=== PATIENT | female | born 1985 | race Caucasian/White ===

== ENCOUNTER 2016-06-22 10:14 | Outpatient (CLI) | payer MEDICAID ==
[~2016-06-22] VITALS: Ht 152.4 cm; Wt 100.9 kg
[2016-06-22] MEDS ORDERED: PRENAT PO (10:31)
[2016-06-22 10:33] VITALS: Ht 152.4 cm; Wt 100.9 kg
[2016-06-22 10:34] VITALS: BP 116/68; PULSE 89; RESP 18
--- NOTE | 2016-06-22 11:53 | RADRPT ---
PROCEDURE: US OB. CLINICAL INDICATION: Size and dates , decreased movements TECHNIQUE: Multiple sonographic images of the pelvis and gravid uterus were obtained. The images were reviewed on a PACS workstation. COMPARISON: No prior studies are available for comparison. FINDINGS: There is a single viable intrauterine gestation. Cardiac activity is present with 146 beats per min [place]. There is a breech presentation. The placenta is anterior fundal. There is no evidence for an abruption or placenta previa. Measurements were made in order to determine age. The results are as follows: BPD =7.4 cm HC =27.1 cm AC =26.4 cm FL =5.4 cm Estimated gestational age of approximately 29 weeks and 4 days based on ultrasound measurements. Clinical age: 30 weeks and 3 days. The estimated date of delivery is 09/03/16, based on ultrasound measurements. The EFW = 1448 g, 17.8%, based on LMP age. RPTAT: AA IMPRESSION: Single viable intrauterine gestation of approximately 29 weeks and 4 days based on ultrasound measu rements. .Ronan Vizcarra MD, MD Date Time Electronically viewed and signed by .Ronan Vizcarra MD, on 06/22/2016 11:53 .S/
--- NOTE | 2016-06-22 11:55 | RADRPT ---
PROCEDURE: US OB biophysical profile. CLINICAL INDICATION: Decreased movement TECHNIQUE: Multiple sonographic images of the pelvis were obtained. The images were reviewed on a PACS workstation. COMPARISON: Obstetrical ultrasound from the same date FINDINGS: There is a single viable intrauterine gestation. Cardiac activity is present with 146 beats per min [place]. There is a breech presentation. The placenta is anterior and fundal. There is no evidence of placental abruption. There is an elevated amount of amniotic fluid with an CHRISTIAN = 22.7 cm. Biophysical profile: movement 2/2 tone 2/2. breathing 2/2 CHRISTIAN 2/2 Total 12/22 RPTAT: AA . IMPRESSION: Normal biophysical profile. Elevated CHRISTIAN of 22.7 cm. Physician Cindy Date Time Electronically viewed and signed by Physician Cindy on 06/22/2016 11:55 /
--- NOTE | 2016-06-22 12:32 | PN ---
DATE: 06/22/2016 The patient is a 30-year-old complaining of decreased movement. No leakage or vaginal b leeding. Vital signs stable. NST, ultrasound, BBP all within normal limits. The patient was disch arged home. Followup with [facility] within 1 to 2 days. ER precautions given. The patient stable on discharge. Dictated By: JESÚS YODER MD /NTS Conf#: [id number] DID#: [id number]
== END 2016-06-22 11:45 | disposition home or self-care (01) ==
LOC: OBT 10:14 → L-D 10:15 → OBT 11:45
PROVIDERS: ATTEND Obstetrics & Gynecology
DX: O36.8130 Decreased fetal movements, third trimester, not applicable or unspecified (principal); O26.843 Uterine size-date discrepancy, third trimester; Z3A.30 30 weeks gestation of pregnancy
CPT/HCPCS: 76815; 76818; Z7500; G0463

== ENCOUNTER 2016-08-11 11:18 | Outpatient (CLI) | payer MEDICAID ==
[~2016-08-11] VITALS: Ht 152.4 cm; Wt 108.0 kg
[~2016-08-11 11:18] MED LIST: PRENAT PO
[2016-08-11 11:33] VITALS: Ht 152.4 cm; Wt 108.0 kg
[2016-08-11 11:34] VITALS: BP 107/70; PULSE 110; RESP 19
--- NOTE | 2016-08-11 11:59 | RADRPT ---
PROCEDURE: US OB. CLINICAL INDICATION: Size and dates TECHNIQUE: Multiple sonographic images of the pelvis and gravid uterus were obtained. The images were reviewed on a PACS workstation. COMPARISON: 06/22/2016 FINDINGS: The study is limited due to patient body habitus. There is a single viable intrauterine gestation. Cardiac activity is present with 163 beats per min [place]. There is a vertex presentation. The placenta is left lateral. There is no evidence for an abruption or placenta previa. Measurements were made in order to determine age. The results are as follows: BPD =9.5 cm HC =33.3 cm AC =37.1 cm FL =6.9 cm Estimated gestational age of approximately 38 weeks and 2 days based on ultrasound measurements. Clinical age: 36 weeks and 4 days. The estimated date of delivery is 08/23/16, based on ultrasound measurements. The EFW = 3737 g, >97%, based on LMP age. RPTAT: AA IMPRESSION: Single viable intrauterine gestation of approximately 38 weeks and 2 days based on ultrasound measu rements. Larger than clinical age by approximately 2 weeks. .Ronan Vizcarra MD, MD Date Time Electronically viewed and signed by .Ronan Vizcarra MD, on 08/11/2016 11:59 .S/
--- NOTE | 2016-08-11 12:02 | RADRPT ---
PROCEDURE: US OB biophysical profile. CLINICAL INDICATION: decreased movements, size and dates TECHNIQUE: Multiple sonographic images of the pelvis were obtained. The images were reviewed on a PACS workstation. COMPARISON: No prior studies are available for comparison. FINDINGS: There is a single viable intrauterine gestation. Cardiac activity is present with 161 beats per min [place]. There is a vertex presentation. The placenta is left lateral. There is no evidence of placental abruption. There is a slightly increased amount of amniotic fluid with an CHRISTIAN = 22.3 cm. Biophysical profile: movement 2/2 tone 2/2. breathing 2/2 CHRISTIAN 2/2 Total 12/22 RPTAT: AA . IMPRESSION: Normal biophysical profile. Mild polyhydramnios. . .Ronan Vizcarra MD, Date Time Electronically viewed and signed by .Ronan Vizcarra MD, MD on 08/11/2016 12:02 .S/
--- NOTE | 2016-08-11 12:51 | TRIAGE ---
OB Triage Datetime Report Generated by CPN: 08/11/2016 12:51 Datetime: 08/11/2016 12:40 Maternal Assessment Level of Consciousness: Fully Conscious DTR's/Clonus: DTRs 1+ Headache: Denies Blurred Vision: No Respiratory Effort: Unlabored Breath Sounds, Left: Clear and Equal Breath Sounds, Right: Clear and Equal RUQ Epigastric Pain: Denies Facial Edema: None Labor Evaluation Frequency: X2 Monitor Mode: External Duration (sec)2399: 40-50 Quality: Mild Pattern: Normal: <= 5 Contractions in 10 Minutes Resting Tone Blessing: Relaxed Heart Rate FHR Baseline Rate: 145 Monitor Mode: External US Variability: Moderate 6-25 bpm Accelerations: 15X15 Decelerations: None Category: Category I Pain Assessment Pain Scale: 0 Pain Presence: None/Denies Pain Type: N/A Pain Goal: 3 Vaginal Exam Membrane Status: Intact Datetime: 08/11/2016 11:34 Maternal Assessment Level of Consciousness: Fully Conscious DTR's/Clonus: DTRs 1+ Headache: Denies Blurred Vision: No Respiratory Effort: Unlabored Breath Sounds, Left: Clear and Equal Breath Sounds, Right: Clear and Equal Nausea/Vomiting: Denies RUQ Epigastric Pain: Denies Facial Edema: None Labor Evaluation Frequency: X1 Monitor Mode: External Duration (sec)2399: 50 Quality: Mild Pattern: Normal: <= 5 Contractions in 10 Minutes Resting Tone Blessing: Relaxed Heart Rate FHR Baseline Rate: 145 Monitor Mode: External US Variability: Moderate 6-25 bpm Accelerations: 15X15 Decelerations: None Category: Category I Pain Assessment Pain Scale: 0 Pain Presence: None/Denies Pain Type: N/A Vaginal Exam Membrane Status: Intact Datetime: 08/11/2016 11:32 Assessment Type: Triage Maternal Assessment Level of Consciousness: Fully Conscious DTR's/Clonus: DTRs 2+; No Clonus Headache: Denies Blurred Vision: No Respiratory Effort: Unlabored; Regular Rhythm; Equal Expansion Breath Sounds, Left: Clear and Equal Breath Sounds, Right: Clear and Equal Nausea/Vomiting: Denies RUQ Epigastric Pain: Denies Lower Extremities Edema: None Degree: None Upper Extremities Edema: None Degree: None Facial Edema: None Fall Risk Assessment History of Falling: (0) No Secondary Diagnosis: (0) No Ambulatory Aid: (0) Bedrest/Nurse Assist IV Therapy: (0) No Gait: (0) Normal/Bedrest/Immobile Mental Status: (0) Oriented to Own Ability Fall Score: 0 Fall Risk Score Definition: No Risk: No action required Datetime: 08/11/2016 11:05 Time of Arrival: 08/11/2016 11:05 EGA: 35.4 Arrived By: Ambulatory Arrived From: Home Chief Complaint: PT CAME IN FROM [facility] FOR NST BPP AND EFW Movement: Present Contractions: Denies/Absent Rupture of Membranes: Denies Vaginal Bleeding: None Vaginal Discharge: Denies Recent Sexual Intercouse: Denies Abdominal Trauma: Not Applicable Patient Complaints: Other Additional Patient Complaints: NONE Time Provider Notified: 08/11/2016 11:25 Provider Notified: [facility] Initial Plan: BPP NST AND EFW Datetime: 06/22/2016 11:24 Labor Evaluation Frequency: 0 Pattern: Normal: <= 5 Contractions in 10 Minutes Resting Tone Blessing: Relaxed Heart Rate FHR Baseline Rate: 145 Monitor Mode: External US FHR Baseline Changes: No Baseline Change Variability: Moderate 6-25 bpm Accelerations: 15X15 Decelerations: None Category: Category I Datetime: 06/22/2016 10:45 Assessment Type: Admission Assessment Maternal Assessment Level of Consciousness: Fully Conscious DTR's/Clonus: DTRs 2+; No Clonus Headache: Denies Blurred Vision: No Respiratory Effort: Unlabored; Regular Rhythm; Equal Expansion Breath Sounds, Left: Clear and Equal Breath Sounds, Right: Clear and Equal Nausea/Vomiting: Denies RUQ Epigastric Pain: Denies Lower Extremities Edema: None Degree: None Upper Extremities Edema: None Degree: None Facial Edema: None Fall Risk Assessment History of Falling: (0) No Secondary Diagnosis: (0) No Ambulatory Aid: (0) Bedrest/Nurse Assist IV Therapy: (0) No Gait: (0) Normal/Bedrest/Immobile Mental Status: (0) Oriented to Own Ability Fall Score: 0 Fall Risk Score Definition: No Risk: No action required Labor Evaluation Frequency: 0 Pattern: Normal: <= 5 Contractions in 10 Minutes Resting Tone Blessing: Relaxed Heart Rate FHR Baseline Rate: 140 Monitor Mode: External US Variability: Moderate 6-25 bpm Accelerations: 10X10 Decelerations: None Category: Category I Datetime: 06/22/2016 10:43 Time of Arrival: 06/22/2016 10:05 EGA: 28.3 Arrived By: Wheelchair Arrived From: Emergency Dept Chief Complaint: DFM Movement: Decreased Contractions: Denies/Absent Rupture of Membranes: Denies Vaginal Bleeding: None Vaginal Discharge: Denies Recent Sexual Intercouse: Denies Abdominal Trauma: Not Applicable Patient Complaints: Other Time Provider Notified: 06/22/2016 11:30 Provider Notified: DR YODER Initial Plan: NST, BPP AND EFW
== END 2016-08-11 12:50 | disposition home or self-care (01) ==
LOC: OBT 11:18 → L-D 11:18 → OBT 12:50
PROVIDERS: ATTEND Obstetrics & Gynecology
DX: O47.9 False labor, unspecified (principal); Z3A.00 Weeks of gestation of pregnancy not specified
CPT/HCPCS: 76815; 76818; Z7500; G0463

== ENCOUNTER 2016-08-14 09:08 | Outpatient (CLI) | payer MEDICAID ==
[~2016-08-14] VITALS: Ht 152.4 cm; Wt 109.2 kg
--- NOTE | 2016-08-14 10:04 | RADRPT ---
PROCEDURE: OB ultrasound for biophysical profile CLINICAL INDICATION: Polyhydramnios TECHNIQUE: Multiple sonographic images of the pelvis were obtained. Transabdominal views of the g ravid uterus are available for review. The images were reviewed on a PACS workstation. COMPARISON: None FINDINGS: breathing movement = 2/2 tone = 2/2 motion = 2/2 CHRISTIAN = 2/2 CHRISTIAN = 23.6 cm Single live intrauterine with cardiac activity of 136 bpm. position is breech . The placenta is posterior. IMPRESSION: 1. Single live intrauterine gestation. 2. Biophysical profile = 8/8. 3. Polyhydramnios. CHRISTIAN = 23.6 cm. 4. Breech presentation. RPTAT: HH .Radha Luna MD, Date Time Electronically viewed and signed by .Radha Luna MD, on 08/14/2016 10:04 .G/
--- NOTE | 2016-08-14 11:33 | QN ---
Documentation Comment OB Triage: 38+wks GA with Poly hydramnios Today CHRISTIAN 23 NST reactive lots of loss of contact BPP 12/22 CTX NO ctxs --->As per Provider's decision,Ilya Keller patient is discharged and will be followed up with him in 2 days for NST BPP ANDREI JOHNSON M.D. Aug 14, 2016 11:33
== END 2016-08-14 11:40 | disposition home or self-care (01) ==
LOC: OBT 09:08 → L-D 09:09 → OBT 11:40
PROVIDERS: ATTEND Obstetrics & Gynecology
DX: O40.3XX0 Polyhydramnios, third trimester, not applicable or unspecified (principal); Z3A.38 38 weeks gestation of pregnancy
CPT/HCPCS: 76818; Z7500; G0463

== ENCOUNTER 2016-08-17 12:16 | Inpatient (IN) | payer MEDICAID ==
[2016-08-17] VITALS (13 sets, daily range): BP systolic 101–129; BP diastolic 53–72; PULSE 69–97; RESP 18–20; Ht 152.4 cm; Wt 111.0 kg
[~2016-08-17] VITALS: Ht 152.4 cm; Wt 111.0 kg
--- NOTE | 2016-08-17 12:46 | RADRPT ---
PROCEDURE: US biophysical profile. CLINICAL INDICATION: Polyhydramnios. TECHNIQUE: Multiple sonographic images of the uterus were obtained. The images were revi ewed on a PACS workstation. COMPARISON: 08/14/2016. FINDINGS: There is a single live intrauterine gestation. heart rate is 150 beats per minute. The position is transverse with head to maternal right. The placenta is anterior grade II with no abruption or previa. The CHRISTIAN is 15.2 cm. (Normal = 5-20 cm.) Breathing Movement: 2 Gross Body Movement: 2 Tone: 2 Qualitative Amniotic Fluid Volume: 2 TOTAL: 8 IMPRESSION: 1. The biophysical score is 8/8. RPTAT: QQ .Vern Palacios MD, MD Date Time Electronically viewed and signed by .Vern Palacios MD, on 08/17/2016 12:46 .R/
--- NOTE | 2016-08-17 14:58 | TRIAGE ---
OB Triage Datetime Report Generated by CPN: 08/17/2016 14:58 Datetime: 08/17/2016 13:40 Stage of : OB Triage Maternal Assessment Level of Consciousness: Fully Conscious DTR's/Clonus: DTRs 1+ Headache: Denies Breath Sounds, Left: Clear and Equal Breath Sounds, Right: Clear and Equal Nausea/Vomiting: Denies RUQ Epigastric Pain: Denies Labor Evaluation Frequency: 4-6 Monitor Mode: External Duration (sec)2399: 50-90 Quality: Mild Pattern: Normal: <= 5 Contractions in 10 Minutes Resting Tone Stigler: Relaxed Heart Rate FHR Baseline Rate: 135 Monitor Mode: External US Variability: Moderate 6-25 bpm Accelerations: 15X15 Decelerations: None Category: Category I Pain Presence: None/Denies Pain Type: N/A Vaginal Exam Membrane Status: Intact Datetime: 08/17/2016 13:39 Maternal Assessment Level of Consciousness: Fully Conscious DTR's/Clonus: DTRs 1+ Headache: Denies Blurred Vision: No Respiratory Effort: Unlabored Breath Sounds, Left: Clear and Equal Breath Sounds, Right: Clear and Equal Nausea/Vomiting: Denies RUQ Epigastric Pain: Denies Facial Edema: 1+ Labor Evaluation Frequency: 4-6 Monitor Mode: External Duration (sec)2399: 50-90 Quality: Mild Pattern: Normal: <= 5 Contractions in 10 Minutes Resting Tone Stigler: Relaxed Heart Rate FHR Baseline Rate: 135 Monitor Mode: External US Variability: Moderate 6-25 bpm Accelerations: 15X15 Decelerations: None Category: Category I Pain Presence: None/Denies Pain Type: N/A Vaginal Exam Membrane Status: Intact Datetime: 08/17/2016 12:40 Maternal Assessment Level of Consciousness: Fully Conscious DTR's/Clonus: DTRs 1+ Headache: Denies Breath Sounds, Left: Clear and Equal Breath Sounds, Right: Clear and Equal Nausea/Vomiting: Denies RUQ Epigastric Pain: Denies Labor Evaluation Frequency: 4-6 Monitor Mode: External Duration (sec)2399: 50-90 Quality: Mild Pattern: Normal: <= 5 Contractions in 10 Minutes Resting Tone Stigler: Relaxed Heart Rate FHR Baseline Rate: 135 Monitor Mode: External US Variability: Moderate 6-25 bpm Accelerations: 15X15 Decelerations: None Pain Presence: None/Denies Pain Type: N/A Vaginal Exam Membrane Status: Intact Datetime: 08/17/2016 12:35 Assessment Type: Triage Maternal Assessment Level of Consciousness: Fully Conscious DTR's/Clonus: DTRs 2+; No Clonus Headache: Denies Blurred Vision: No Respiratory Effort: Unlabored; Regular Rhythm; Equal Expansion Breath Sounds, Left: Clear and Equal Breath Sounds, Right: Clear and Equal Nausea/Vomiting: Denies RUQ Epigastric Pain: Denies Lower Extremities Edema: None Degree: None Upper Extremities Edema: None Degree: None Facial Edema: None Fall Risk Assessment History of Falling: (0) No Secondary Diagnosis: (0) No Ambulatory Aid: (0) Bedrest/Nurse Assist IV Therapy: (0) No Gait: (0) Normal/Bedrest/Immobile Mental Status: (0) Oriented to Own Ability Fall Score: 0 Fall Risk Score Definition: No Risk: No action required Datetime: 08/17/2016 12:16 Time of Arrival: 08/17/2016 12:16 EGA: 36.3 Arrived By: Ambulatory Arrived From: Home Chief Complaint: PT CAME IN FOR NST AND BPP FOR POLY Movement: Present Contractions: Denies/Absent Rupture of Membranes: Denies Vaginal Discharge: Denies Recent Sexual Intercouse: Denies Abdominal Trauma: Not Applicable Additional Patient Complaints: NONE Time Provider Notified: 08/17/2016 12:34 Provider Notified: [facility] Initial Plan: NST AND BPP Datetime: 08/14/2016 11:28 Stage of : Antepartum Datetime: 08/14/2016 11:09 Stage of : OB Triage Datetime: 08/14/2016 10:59 Stage of : OB Triage Datetime: 08/14/2016 10:33 Labor Evaluation Frequency: IRREG Monitor Mode: External Duration (sec)2399: 50-70 Resting Tone Stigler: Relaxed Heart Rate FHR Baseline Rate: 135 Monitor Mode: External US Variability: Moderate 6-25 bpm Accelerations: 10X10 Decelerations: None Category: Category I Pain Assessment Pain Scale: 0 Pain Presence: None/Denies Pain Type: N/A Pain Goal: 3 Pain Relief Measures: Comfort Measures Datetime: 08/14/2016 09:33 Stage of : OB Triage Datetime: 08/14/2016 09:27 Stage of : OB Triage Assessment Type: Triage Maternal Assessment Level of Consciousness: Fully Conscious DTR's/Clonus: DTRs 2+; No Clonus Headache: Denies Blurred Vision: No Respiratory Effort: Unlabored; Regular Rhythm; Equal Expansion Breath Sounds, Left: Clear and Equal Breath Sounds, Right: Clear and Equal Nausea/Vomiting: Denies RUQ Epigastric Pain: Denies Lower Extremities Edema: None Degree: None Facial Edema: None Temperature Route: Axillary Fall Risk Assessment History of Falling: (0) No Secondary Diagnosis: (0) No Ambulatory Aid: (0) Bedrest/Nurse Assist IV Therapy: (0) No Gait: (0) Normal/Bedrest/Immobile Mental Status: (0) Oriented to Own Ability Fall Score: 0 Fall Risk Score Definition: No Risk: No action required Labor Evaluation Frequency: 0 Monitor Mode: External Resting Tone Stigler: Relaxed Heart Rate FHR Baseline Rate: 140 Monitor Mode: External US Variability: Moderate 6-25 bpm Decelerations: None Category: Category II Pain Assessment Pain Scale: 0 Pain Presence: None/Denies Pain Type: N/A Pain Goal: 3 Pain Relief Measures: Comfort Measures Datetime: 08/14/2016 09:25 Time of Arrival: 08/14/2016 09:05 EGA: 36.0 Arrived By: Ambulatory Arrived From: Home Chief Complaint: FOLLOW UP POLYHYDRAMNIOS,DENIES UC'S, LEAKING OR BLEEDING Movement: Present Contractions: Denies/Absent Rupture of Membranes: Denies Vaginal Bleeding: None Vaginal Discharge: Denies Recent Sexual Intercouse: Denies Abdominal Trauma: Not Applicable Patient Complaints: None Time Provider Notified: 08/14/2016 09:33 Provider Notified: [facility] Initial Plan: MONITOR, BPP/CHRISTIAN Datetime: 08/11/2016 11:32 Fall Score: 0 Fall Risk Score Definition: No Risk: No action required Datetime: 08/11/2016 11:05 EGA: 35.4 Datetime: 06/22/2016 10:45 Fall Score: 0 Fall Risk Score Definition: No Risk: No action required Datetime: 06/22/2016 10:43 EGA: 28.3
[2016-08-17] MEDS ORDERED: LACTATED RINGER'S 1,000 ML IV SCH (15:19)
[2016-08-17] MEDS ORDERED: CARBOPROST 250 MCG INJ IM PRN ×2 (15:30→19:30)
[2016-08-17] MEDS ORDERED: CEFAZOLIN 2 GM/50 ML (PMX) 50 ML IV SCH (15:30)
[2016-08-17] MEDS ORDERED: MISOPROSTOL 200 MCG TAB PR PRN ×2 (15:30→19:30)
[2016-08-17] MEDS ORDERED: OXYTOCIN 30 UNITS/LR 500 ML IV PRN ×2 (15:30→19:30)
[2016-08-17] MEDS ORDERED: METHYLERGONOVINE 0.2 MG INJ IM PRN ×2 (15:30→19:30)
[2016-08-17] MEDS ORDERED: OXYTOCIN 30 UNITS/LR 500 ML IV SCH ×3 (15:30→23:51)
[2016-08-17 16:22] LABS: ADD SCAN DIFF NO
[2016-08-17 16:28] LABS: BASOPHILS % 0.2 % (0.0-2.0); EOSINOPHILS # 0.1 10^3/ul (0.0-0.5); EOSINOPHILS % 1.3 % (0.0-7.0); HEMATOCRIT 37.6 % (37.0-47.0); HEMOGLOBIN 12.2 g/dl (12.0-16.0); LYMPHOCYTES # 1.8 10^3/ul (0.8-2.9); LYMPHOCYTES % 28.3 % (15.0-51.0); MEAN CORPUSCULAR HEMOGLOBIN 29.5 pg (29.0-33.0); MEAN CORPUSCULAR HGB CONC 32.4 g/dl (32.0-37.0); MEAN PLATELET VOLUME 11.7 fl (7.4-10.4); MONOCYTE # 0.5 10^3/ul (0.3-0.9); MONOCYTES % 7.7 % (0.0-11.0); PLATELET COUNT 125 10^3/UL (140-415); RED BLOOD COUNT 4.13 10^6/ul (4.20-5.40); RED CELL DISTRIBUTION WIDTH 14.8 % (11.5-14.5); WHITE BLOOD COUNT 6.4 10^3/ul (4.8-10.8)
[2016-08-17 16:39] LABS: INR 0.86; PROTIME 11.7 Sec (12.2-14.2); PT RATIO 0.9
[2016-08-17 16:40] LABS: PARTIAL THROMBOPLASTIN TIME 24.1 Sec (25.0-35.0)
[2016-08-17] MEDS ORDERED: LACTATED RINGER'S 1,000 ML IV ONE (16:51)
[2016-08-17] MEDS ORDERED: FAMOTIDINE 20 MG INJ IV ONE (17:00)
[2016-08-17] MEDS ORDERED: CITRIC ACID/NA CITRATE 30 ML CUP PO ONE (17:00)
[2016-08-17] MEDS ORDERED: METOCLOPRAMIDE 10 MG INJ IV ONE (17:00)
[2016-08-17] MEDS ORDERED: OXYTOCIN 30 UNITS/LR 500 ML IV ONE (18:19)
[2016-08-17] MEDS ORDERED: morphine SULFATE/PF (10 MG/10 ML) INJ ONE (18:19)
[2016-08-17] MEDS ORDERED: FENTAnyl 50 MCG/ML VIAL ONE ×2 (18:19→18:20)
--- NOTE | 2016-08-17 18:24 | HP ---
Date/Time of Note Date/Time of Note DATE: 08/17/16 TIME: 18:15 OB - History Hx of Present Free Text/Dictation This is a 30 years old female morbidly obese admitted to [facility] at 36 weeks gestation with a history of 2 previous section in active labor with contractions every 4-6 minutes also patient has requested bilateral tubal ligation at the time of her section ,the failure rate of tubal ligation increased risk of ectopic future failure to conceive has been discussed with the patient during the also she has been advised regarding the complication of the and possibility of infection hemorrhage and hematoma with respect to the number of the previous C-sections and possibility of adhesions/ bowel bladder injury and possibility hysterectomy discussed with the patient and she is willing to go ahead with this procedure Chief Complaint: 2 previous in active labor Estimated Due Date: Sep 11, 2016 : 3 Para: 2 Care: Limited Care Ultrasounds: Other (Late care third trimester ultrasound) Obstetrical Complications: None Medical Complications: None Past Family/Social History * Past Medical, Surgical, Family and Obstetric Histories reviewed from chart. Rubella: immune RPR/VDRL: Negative GBS Status: Negative HBsAG: Negative OB Admission Exam Vital Signs Vital Signs Vital Signs Date Time Temp Pulse Resp B/P Pulse Ox O2 Delivery O2 Flow Rate FiO2 08/17/16 12:26 98.6 19 101/58 99 Physical Exam HEENT: WNL Heart: Rhythm Normal Lungs: Clear, Equal Extremities: Normal Cervical Dilatation: Fingertip Effacement: 25% Station: Ballotable Membranes: Intact Heart Rate: 120's Accelerations: Accelerations Present Decelerations: No Decelerations Varibility: Moderate Contractions on Admission: < 5 Minutes Apart Intensity: Moderate Last 72 hours Lab Results CBC & BMP 08/17/16 15:55 DELMA ARAUJO MD Aug 17, 2016 18:24
[2016-08-17] MEDS ORDERED: EPHEDrine SULFATE 50 MG/5 ML SYG ONE (18:57)
[2016-08-17] MEDS ORDERED: ONDANSETRON 4 MG INJ ONE (18:57)
[2016-08-17] MEDS ORDERED: DIPHENHYDRAMINE 50 MG INJ IV PRN ×2 (19:00)
[2016-08-17] MEDS ORDERED: ZOLPIDEM 5 MG TAB PO PRN (19:00)
[2016-08-17] MEDS ORDERED: PROCHLORPERAZINE 10 MG INJ IV PRN ×2 (19:00)
[2016-08-17] MEDS ORDERED: HYDROmorphONE (0.2 MG/ML) 10ML SYG IV PRN (19:00)
[2016-08-17] MEDS ORDERED: KETOROLAC 30 MG INJ IV PRN ×2 (19:00)
[2016-08-17] MEDS ORDERED: MEPERIDINE 25 MG INJ IV PRN (19:00)
[2016-08-17] MEDS ORDERED: NALOXONE (0.4 MG/ML) INJ IV PRN (19:00)
[2016-08-17] MEDS ORDERED: ONDANSETRON 4 MG INJ IV PRN ×2 (19:00)
[2016-08-17] MEDS ORDERED: FENTAnyl 50 MCG/ML VIAL IV PRN (19:00)
[2016-08-17] MEDS ORDERED: HYDROmorphONE 1 MG/ML SYG IV PRN ×2 (19:00)
[2016-08-17] MEDS: LACTATED RINGER'S 1,000 ML IV SCH (19:23)
[2016-08-17] MEDS ORDERED: CEFAZOLIN 1 GM/50 ML (PMX) 50 ML IVPB SCH (19:30)
--- NOTE | 2016-08-17 23:03 | OPR ---
DATE OF OPERATION: 08/17/2016 PREOPERATIVE DIAGNOSES: 1. Intrauterine at 36 weeks and 3 days gestation. 2. History of 2 previous classical section in [place] in active labor. POSTOPERATIVE DIAGNOSES: 1. A 36 weeks and 3 days . 2. History of 2 previous classical section in [place] in active labor. PROCEDURE: Repeat section (low cervical section). SURGEON: Delma Caraballo MD [employer] INSULATION INSTALLER: Wisam Foreman MD ANESTHESIA: Spinal. ANESTHESIOLOGIST: Dr. Marie. FINDINGS: Live baby girl, of 4, 6, and 7. Baby weighed 4050 grams, equal to 8 pounds 15 ounc es. DETAILS OF THE PROCEDURE: Under satisfactory spinal anesthesia, the patient was prepped and draped and placed in supine position, tilted to the left. Pfannenstiel incision was made, carried through the subcutaneous tissue. Bleeders brought under control with electrocautery. Fascia incised to the length of the incision. Rectus muscle divided in midline. Peritoneum exposed, entered through a t ransverse incision. Exploration of abdomen revealed a gravid uterus with normal appearing tubes and ovaries. Bladder flap was developed. Transverse incision was made in the lower segment of the [place]. Amniotic sac ruptured. Clear amniotic fluid noted. Live baby girl was delivered from unengag ed vertex from OP position. Nasal oropharyngeal suction was performed. Baby handed to the team for immediate attention. The patient received 20 units of Pitocin. Placenta delivered manual ly intact. Uterine cavity cleaned with wet sponge and drainage established. Uterus closed in 2 lay ers using Monocryl #1 in continuous fashion. Peritoneal cavity irrigated with warm saline. Sponge, needle, and instrument reported to be correct. Abdominal peritoneum closed with 2-0 chromic catgut continuously. Rectus muscle approximated with 2 interrupted 2-0 chromic catgut. Fascia closed wit h #1 PDS in a continuous fashion. Subcutaneous tissue approximated with 2-0 chromic catgut. Skin c losed with fausto. Estimated blood loss 600 mL. Urine bag contained 200 mL of clear urine. The p atient tolerated procedure well, transferred to recovery room in a good condition. Dictated By: DELMA VERDUZCO/NTS Conf#: [id number] DID#: [id number]
--- NOTE | 2016-08-17 23:08 | OPR ---
DATE OF OPERATION: 08/17/2016 PREOPERATIVE DIAGNOSES: 1. Intrauterine at 36 weeks 4 days' gestation, history of 2 previous sections, in active labor. 2. Request for bilateral tubal ligation at the time of section. POSTOPERATIVE DIAGNOSES: 1. Intrauterine at 36 weeks 4 days' gestation, history of 2 previous sections, in active labor. 2. Request for bilateral tubal ligation at the time of section. OPERATION PERFORMED: Repeat transverse low cervical section, bilateral tubal ligation. SURGEON: Delma Caraballo MD ELECTRICAL PRODUCTS ENGINEER: Wisam Foreman MD ANESTHESIA: Spinal. ANESTHESIOLOGIST: Dr. Marie. FINDINGS: Live baby girl with weighed 4050 grams. DETAILS OF THE PROCEDURE: Under satisfactory spinal anesthesia, the patient was prepped and draped and placed in supine position, tilted to the left. Pfannenstiel incision was made, incision carried through the subcutaneous tissue. Bleeders brought under control with electrocautery. Fascia incised to the length of the incision. Rectus muscle divided in midline. Peritoneum exposed, entered through a transverse incision. Exploration of abdomen revealed a gravid uterus at term, normal appearing tubes and ovaries. Bladder flap was developed. Transverse incision was made in the lower segment of the uterus. Amniotic sac ruptured. Clear amniotic fluid noted. Live baby girl was delivered from unengaged vertex. Nasal oropharyngeal suction was performed. Baby handed to the team for immediate attention. Patient received 20 units of Pitocin. Placenta delivered manually intact. Uterine cavity cleaned with wet sponge and drainage established. Uterus closed in 2 layers using Monocryl #1 in continuous fashion. Bilateral tubal ligation performed by identifying the fimbriated end and ampullary portion of the right fallopian tube. Suture material used #0 plain catgut was reinforced with the same suture material. The ampullar section of the tube including the fimbria was excised and the cut end of the tube was cauterized and the specimen submitted for the pathology. The same procedure performed for the opposite side. Peritoneal cavity irrigated with warm saline. Sponge, needle, and instrument reported to be correct. Abdominal peritoneum closed with 2-0 chromic catgut continuously. Rectus muscle approximated with 3 interrupted 2-0 chromic catgut. Fascia closed with #1 PDS in a continuous fashion. Subcutaneous tissue approximated with 2-0 chromic catgut. The skin closed with fausto. Estimated blood loss 600 mL. Urine bag contained 200 to 300 mL of clear urine. The patient tolerated procedure well, transferred to recovery room in a good condition. Dictated By: DELMA VERDUZCO/JOYCE Conf#: [id number] DID#: [id number] MTDD
[2016-08-17] MEDS: OXYTOCIN 30 UNITS/LR 500 ML IV SCH (23:51)
[2016-08-18] VITALS (8 sets, daily range): BP systolic 101–146; BP diastolic 65–78; PULSE 74–99; RESP 18–20
[2016-08-18] MEDS ORDERED: IBUPROFEN 600 MG TAB PO SCH ×2
[2016-08-18] MEDS ORDERED: OXYTOCIN 30 UNITS/LR 500 ML IV PRN ×2
[2016-08-18] MEDS ORDERED: LANOLIN 7 GM TUBE TOP PRN ×2
[2016-08-18] MEDS ORDERED: METHYLERGONOVINE 0.2 MG INJ IM PRN ×2
[2016-08-18] MEDS ORDERED: MISOPROSTOL 200 MCG TAB PR PRN ×2
[2016-08-18] MEDS ORDERED: CARBOPROST 250 MCG INJ IM PRN ×2
[2016-08-18] MEDS ORDERED: ACETAMINOPHEN/CODEINE #3 TAB PO PRN ×4
[2016-08-18] MEDS ORDERED: CEFAZOLIN 1 GM/50 ML (PMX) 50 ML IVPB SCH ×2
[2016-08-18] MEDS ORDERED: OXYCODONE/ACETAMINOPHEN (5/325) TAB PO PRN ×3
[2016-08-18] MEDS: LACTATED RINGER'S 1,000 ML IV SCH ×3 (03:23→18:43)
[2016-08-18] MEDS: OXYTOCIN 30 UNITS/LR 500 ML IV SCH ×5 (05:03→18:43)
[2016-08-18] MEDS: IBUPROFEN 600 MG TAB PO SCH ×3 (06:00→18:06)
[2016-08-18 08:44] LABS: ADD SCAN DIFF NO
[2016-08-18 08:48] LABS: BASOPHILS % 0.1 % (0.0-2.0); EOSINOPHILS % 0.3 % (0.0-7.0); HEMATOCRIT 36.8 % (37.0-47.0); HEMOGLOBIN 11.7 g/dl (12.0-16.0); LYMPHOCYTES % 14.3 % (15.0-51.0); MEAN CORPUSCULAR HEMOGLOBIN 29.1 pg (29.0-33.0); MEAN CORPUSCULAR HGB CONC 31.8 g/dl (32.0-37.0); MEAN CORPUSCULAR VOLUME 91.5 fl (82.0-101.0); MEAN PLATELET VOLUME 11.8 fl (7.4-10.4); MONOCYTE # 0.4 10^3/ul (0.3-0.9); MONOCYTES % 6.2 % (0.0-11.0); NEUTROPHIL # 5.5 10^3/ul (1.6-7.5); NEUTROPHILS % 78.8 % (39.0-77.0); PLATELET COUNT 106 10^3/UL (140-415); RED BLOOD COUNT 4.02 10^6/ul (4.20-5.40); RED CELL DISTRIBUTION WIDTH 14.7 % (11.5-14.5); WHITE BLOOD COUNT 6.9 10^3/ul (4.8-10.8)
[2016-08-18] MEDS ORDERED: SENNA/DOCUSATE NA (8.6MG/50MG) TAB PO SCH (09:00)
[2016-08-18] MEDS: SENNA/DOCUSATE NA (8.6MG/50MG) TAB PO SCH ×2 (09:20→21:39)
--- NOTE | 2016-08-18 17:40 | PN ---
Date/Time of Note Date/Time of Note DATE: 08/18/16 TIME: 17:38 OB Subjective Subjective Subjective Post day 1 Afebrile vital signs are stable abdomen soft mildly distended bowel sounds present incision dry lochia moderate extremity normal, ambulation encouraged diet will improve when active bowel sounds present and patient able to pass flatus. Laboratory Tests Test 08/18/16 08:05 08/18/16 11:43 White Blood Count 6.910^3/ul Red Blood Count 4.0210^6/ul Hemoglobin 11.7g/dl Hematocrit 36.8% Mean Corpuscular Volume 91.5fl Mean Corpuscular Hemoglobin 29.1pg Mean Corpuscular Hemoglobin Concent 31.8g/dl Red Cell Distribution Width 14.7% Platelet Count 97049^3/UL Mean Platelet Volume 11.8fl Neutrophils % 78.8% Lymphocytes % 14.3% Monocytes % 6.2% Eosinophils % 0.3% Basophils % 0.1% Nucleated Red Blood Cells % 0.0/100WBC Neutrophils # 5.510^3/ul Lymphocytes # 1.010^3/ul Monocytes # 0.410^3/ul Eosinophils # 0.010^3/ul Basophils # 0.010^3/ul Nucleated Red Blood Cells # 0.010^3/ul HIV (1&2) Antibody NEGATIVE Current Medications Medications (Trade) Dose Ordered Sig/Wenceslao Route PRN Reason Start Time Stop Time Status Last Admin Dose Admin Lactated Ringer's 1,000 ml @ 125 mls/hr Q8H IV 08/17/16 15:19 08/18/16 00:10 DC 08/17/16 15:59 Cefazolin Sodium/ Dextrose 50 ml @ 100 mls/hr ONCE IV 08/17/16 15:30 08/18/16 00:10 DC Oxytocin/Lactated Ringer's 500 ml @ 125 mls/hr ONCE IV 08/17/16 15:30 08/18/16 00:10 DC Oxytocin/Lactated Ringer's 500 ml @ 0 mls/hr ONCE PRN IV For Hemorrhage Management 08/17/16 15:30 08/18/16 00:10 DC Methylergonovine Maleate (Methergine) 0.2 mg ONCE PRN IM VAGINAL BLEEDING 08/17/16 15:30 08/18/16 00:10 DC Carboprost Tromethamine (Hemabate) 250 mcg ONCE PRN IM VAGINAL BLEEDING 08/17/16 15:30 08/18/16 00:10 DC Misoprostol 1000 mcg 1,000 mcg ONCE PRN SC VAGINAL BLEEDING 08/17/16 15:30 08/18/16 00:10 DC Lactated Ringer's (Lr) 1,000 ml @ 1,000 mls/hr Q1H ONCE IV 08/17/16 16:51 08/17/16 17:50 DC 08/17/16 18:03 Citric Acid/ Sodium Citrate (Bicitra) 30 ml pre-procedure ONCE PO 08/17/16 17:00 08/17/16 17:01 DC 08/17/16 17:47 Famotidine (Pepcid Iv) 20 mg pre-procedure ONCE IV 08/17/16 17:00 08/17/16 17:01 DC 08/17/16 17:48 Metoclopramide HCl 10 mg 10 mg ONCE ONCE IV 08/17/16 17:00 08/17/16 17:01 DC 08/17/16 17:52 Oxytocin/Lactated Ringer's 500 ml @ ud STK-MED ONCE IV 08/17/16 18:19 08/17/16 18:20 DC Fentanyl (Sublimaze) 100 mcg STK-MED ONCE .ROUTE 08/17/16 18:19 08/17/16 18:20 DC Morphine Sulfate (Duramorph) 10 mg STK-MED ONCE .ROUTE 08/17/16 18:19 08/17/16 18:20 DC Fentanyl (Sublimaze) 100 mcg STK-MED ONCE .ROUTE 08/17/16 18:20 08/17/16 18:21 DC Hydromorphone HCl (Dilaudid (Rec)) 0.4 mg PACU ORDER PRN IV PAIN 08/17/16 19:00 08/18/16 00:10 DC Fentanyl (Sublimaze) 25 mcg PACU ORDER PRN IV PAIN 08/17/16 19:00 08/18/16 00:10 DC Ketorolac Tromethamine (Toradol) 30 mg PACU ORDER PRN IV PAIN 08/17/16 19:00 08/18/16 00:10 DC Ondansetron HCl (Zofran Inj) 4 mg PACU ORDER PRN IV NAUSEA AND/OR VOMITING 08/17/16 19:00 08/18/16 00:10 DC 08/17/16 22:26 Prochlorperazine (Compazine Inj) 5 mg PACU ORDER PRN IV NAUSEA AND/OR VOMITING 08/17/16 19:00 08/18/16 00:10 DC Meperidine HCl (Demerol) 25 mg PACU ORDER PRN IV POST-OP RIGORS 08/17/16 19:00 08/18/16 00:10 DC Diphenhydramine HCl (Benadryl) 25 mg PACU ORDER PRN IV PRURITUS 08/17/16 19:00 08/18/16 00:10 DC Naloxone HCl (Narcan) 0.1 mg Q2M PRN IV FOR RESP RATE 8 OR LESS 08/17/16 19:00 08/18/16 18:59 Ketorolac Tromethamine (Toradol) 30 mg Q6H PRN IV PAIN 08/17/16 19:00 08/18/16 18:59 08/18/16 10:38 Hydromorphone HCl (Dilaudid) 0.2 mg Q3H PRN IV PAIN LEVEL 1-5 08/17/16 19:00 08/18/16 18:59 Hydromorphone HCl (Dilaudid) 0.4 mg Q3H PRN IV PAIN LEVEL 6-10 08/17/16 19:00 08/18/16 18:59 Diphenhydramine HCl (Benadryl) 25 mg Q6H PRN IV ITCHING 08/17/16 19:00 08/18/16 18:59 Ondansetron HCl (Zofran Inj) 4 mg Q6H PRN IV NAUSEA AND/OR VOMITING 08/17/16 19:00 08/18/16 18:59 Prochlorperazine (Compazine Inj) 10 mg ONCE PRN IV NAUSEA AND/OR VOMITING 08/17/16 19:00 08/18/16 18:59 Zolpidem Tartrate (Ambien) 5 mg HS MAY REPEAT X 1 PRN PO INSOMNIA 08/17/16 19:00 08/18/16 18:59 Miscellaneous Information (* Miscellaneous Pharmacy Order) Duramorph: 0.2 mg Spi... GIVEN XX 08/17/16 19:00 08/18/16 00:10 DC Ondansetron HCl (Zofran Inj) 4 mg STK-MED ONCE .ROUTE 08/17/16 18:57 08/17/16 18:58 DC Ephedrine Sulfate 50 mg 50 mg STK-MED ONCE .ROUTE 08/17/16 18:57 08/17/16 18:58 DC Lactated Ringer's 1,000 ml @ 125 mls/hr Q8H IV 08/17/16 19:23 08/18/16 09:19 Oxytocin/Lactated Ringer's 500 ml @ 0 mls/hr ONCE PRN IV For Hemorrhage Management 08/17/16 19:30 08/18/16 00:11 DC Methylergonovine Maleate (Methergine) 0.2 mg ONCE PRN IM VAGINAL BLEEDING 08/17/16 19:30 Carboprost Tromethamine (Hemabate) 250 mcg ONCE PRN IM VAGINAL BLEEDING 08/17/16 19:30 08/18/16 00:11 DC Misoprostol 1000 mcg 1,000 mcg ONCE PRN SC VAGINAL BLEEDING 08/17/16 19:30 08/18/16 00:11 DC Cefazolin Sodium 50 ml @ 100 mls/hr ONCE IVPB 08/17/16 19:30 08/17/16 19:59 DC Oxytocin/Lactated Ringer's 500 ml @ 125 mls/hr Q4H IV 08/17/16 19:23 08/18/16 00:11 DC 08/17/16 21:48 Acetaminophen/ Codeine Phosphate (Tylenol No.3) 1 tab Q4H PRN PO PAIN LEVEL 4-6 08/18/16 00:00 Acetaminophen/ Codeine Phosphate (Tylenol No.3) 2 tab Q4H PRN PO PAIN LEVEL 7-10 08/18/16 00:00 Oxycodone/ Acetaminophen (Percocet (5/ 325)) 1 tab Q4H PRN PO PAIN LEVEL 4-6 08/18/16 00:00 Oxycodone/ Acetaminophen (Percocet (5/ 325)) 2 tab Q4H PRN PO PAIN LEVEL 7-10 08/18/16 00:00 08/18/16 00:21 DC Ibuprofen (Motrin) 600 mg Q6 PO 08/18/16 00:00 UNV Simethicone (Mylicon) 160 mg Q8H PRN PO DISTENSION/GAS/BLOATING 08/18/16 00:00 08/18/16 00:24 DC Senna/Docusate Sodium (Senokot-S) 1 tab BID PO 08/18/16 09:00 08/18/16 09:20 Lanolin (Ivh-E-Sfuldn) 1 applic BEDSIDE MEDICATION PRN TOP BEDSIDE FOR ALANA TO NIPPLES 08/18/16 00:00 08/18/16 00:19 DC Diphtheria/ Tetanus/Acell Pertussis 0.5 ml 0.5 ml ONCE ONCE IM* 08/20/16 09:00 08/20/16 09:00 DC Oxytocin/Lactated Ringer's 500 ml @ 0 mls/hr ONCE PRN IV For Hemorrhage Management 08/18/16 00:00 08/18/16 00:41 Methylergonovine Maleate (Methergine) 0.2 mg ONCE PRN IM VAGINAL BLEEDING 08/18/16 00:00 Carboprost Tromethamine (Hemabate) 250 mcg ONCE PRN IM VAGINAL BLEEDING 08/18/16 00:00 08/18/16 00:16 DC Misoprostol 1000 mcg 1,000 mcg ONCE PRN SC VAGINAL BLEEDING 08/18/16 00:00 08/18/16 00:20 DC Cefazolin Sodium 50 ml @ 100 mls/hr ONCE IVPB 08/18/16 00:00 08/18/16 00:29 DC 08/18/16 03:04 Oxytocin/Lactated Ringer's 500 ml @ 125 mls/hr Q4H IV 08/17/16 23:51 08/18/16 00:23 DC Acetaminophen/ Codeine Phosphate (Tylenol No.3) 1 tab Q4H PRN PO PAIN LEVEL 4-6 08/18/16 00:00 08/18/16 00:16 DC Acetaminophen/ Codeine Phosphate (Tylenol No.3) 2 tab Q4H PRN PO PAIN LEVEL 7-10 08/18/16 00:00 08/18/16 00:16 DC Oxycodone/ Acetaminophen (Percocet (5/ 325)) 1 tab Q4H PRN PO PAIN LEVEL 4-6 08/18/16 00:00 08/18/16 00:21 DC Oxycodone/ Acetaminophen (Percocet (5/ 325)) 2 tab Q4H PRN PO PAIN LEVEL 7-10 08/18/16 00:00 Ibuprofen (Motrin) 600 mg Q6 PO 08/18/16 00:00 08/18/16 00:20 DC Simethicone (Mylicon) 160 mg Q8H PRN PO DISTENSION/GAS/BLOATING 08/18/16 00:00 Senna/Docusate Sodium (Senokot-S) 1 tab BID PO 08/18/16 09:00 08/18/16 09:00 DC Lanolin (Fqo-F-Pdyrsl) 1 applic BEDSIDE MEDICATION PRN TOP BEDSIDE FOR ALANA TO NIPPLES 08/18/16 00:00 08/18/16 09:20 Diphtheria/ Tetanus/Acell Pertussis 0.5 ml 0.5 ml ONCE ONCE IM* 08/20/16 09:00 08/20/16 09:01 Oxytocin/Lactated Ringer's 500 ml @ 0 mls/hr ONCE PRN IV For Hemorrhage Management 08/18/16 00:00 08/18/16 00:23 DC Methylergonovine Maleate (Methergine) 0.2 mg ONCE PRN IM VAGINAL BLEEDING 08/18/16 00:00 08/18/16 00:20 DC Carboprost Tromethamine (Hemabate) 250 mcg ONCE PRN IM VAGINAL BLEEDING 08/18/16 00:00 Misoprostol 1000 mcg 1,000 mcg ONCE PRN SC VAGINAL BLEEDING 08/18/16 00:00 Cefazolin Sodium 50 ml @ 100 mls/hr ONCE IVPB 08/18/16 00:00 08/18/16 00:17 DC Oxytocin/Lactated Ringer's 500 ml @ 125 mls/hr Q4H IV 08/17/16 23:51 08/18/16 07:51 Ibuprofen (Motrin) 600 mg Q6 PO 08/18/16 06:00 Guaifenesin/ Dextromethorphan (Robitussin Dm Liquid Cup) 5 ml Q4H PRN PO COUGH 08/18/16 11:30 DELMA ARAUJO MD Aug 18, 2016 17:40
[2016-08-18] MEDS: GUAIFENESIN/DM 5ML CUP PO PRN (21:40)
[2016-08-19] MEDS: IBUPROFEN 600 MG TAB PO SCH ×4 (00:13→17:06)
[2016-08-19] MEDS: OXYCODONE/ACETAMINOPHEN (5/325) TAB PO PRN ×3 (01:11→23:16)
[2016-08-19 04:10] VITALS: BP 116/73; PULSE 87; RESP 18
[2016-08-19] MEDS: SENNA/DOCUSATE NA (8.6MG/50MG) TAB PO SCH ×2 (08:06→21:00)
[2016-08-19 09:10] VITALS: BP 112/71; PULSE 91; RESP 18
[2016-08-19] MEDS ORDERED: NA PHOSPHATE/BIPHOS 133 ML ENEMA PR ONE (10:30)
[2016-08-19] MEDS: GUAIFENESIN/DM 5ML CUP PO PRN (12:36)
[2016-08-19 15:29] VITALS: BP 117/62; PULSE 92; RESP 17
[2016-08-19 20:00] VITALS: BP 119/67; PULSE 86; RESP 17
[2016-08-20 04:05] VITALS: BP 114/70; PULSE 80; RESP 17
[2016-08-20] MEDS: IBUPROFEN 600 MG TAB PO SCH ×3 (05:35→11:34)
[2016-08-20 07:50] VITALS: BP 120/74; PULSE 78; RESP 18
[2016-08-20] MEDS: SENNA/DOCUSATE NA (8.6MG/50MG) TAB PO SCH (08:58)
[2016-08-20] MEDS ORDERED: DIPHTH/TET/ACEL PERTUSS (ADULT) 0.5 ML VIAL IM* ONE ×2 (09:00)
[2016-08-20] MEDS: GUAIFENESIN/DM 5ML CUP PO PRN (11:41)
--- NOTE | 2016-08-20 12:37 | PD.PPDC ---
FREIGHT MANAGER Discharge Instruction Condition Patient Condition: Good Diet Diet: Resume Regular Diet Activity/Restrictions Activity: Normal Activity May Shower Restrictions: No Exercising No Lifting No Driving No Sexual Activity Nothing in the Vagina No Alsey No Tampons, douche Wound/Drain Care Instructions Wound/Drain Care Instructions: Remove Steri Strips in 1 week Follow-up Follow-up with Physician: 4, Day/Days Provider Information: Appointment to MARVIN lambert in 4 days at the clinic Return to clinic for INTENSIVE CARE MEDICINE SPECIALIST Instructions: Fever greater than 101 Worsening abdominal pain Excessive Vaginal Bleeding More than 2 pads per hour Unable to tolerate diet OB Instructions: Breast Tenderness Blurried Vision Headache Surgical Instructions: Incisional Drainage Incisional Redness DELMA ARAUJO MD Aug 20, 2016 12:37
--- NOTE | 2016-08-20 12:45 | DS ---
Date/Time of Note Date/Time of Note DATE: 08/20/16 TIME: 12:38 Discharge Summary Admission/Discharge Info Admit Date/Time Aug 17, 2016 at 14:30 Discharge Date/Time August 20, 2016- 1235 Final Diagnosis Post repeat bilateral tubal ligation date 3 Patient Condition: Good Procedures Repeat bilateral tubal ligation Hx of Present Illness 36 weeks 3 days patient with history of previous C-sections and request for bilateral tubal ligation admitted to [facility] in active labor underwent a repeat and bilateral tubal ligation her postoperative course in the hospital was uneventful did not spike temperature or having problem with bowel function or urination her incision inspected found free of inflammation and infection patient discharged home with a prescription of analgesics and the recommendation to make appointment in 4 days at the clinic to discontinue fausto Hospital Course Satisfactory Home Meds Reported Medications Multivit/Min/Fol Ac/Iron/Pren* ( S*) 1 Tab Tab, 1 TAB PO DAILY, TAB 06/22/16 Follow-up Plan Patient advised to make appointment in 4 days with the clinic to discontinue fausto DELMA ARAUJO MD Aug 20, 2016 12:45
== END 2016-08-20 14:13 | disposition home or self-care (01) | DRG 765 ==
LOC: OBT 12:16 → L-D 12:17 → OBT 14:30 → L-D 14:30 → PP1 23:45
PROVIDERS: ADMIT Obstetrics & Gynecology; ATTEND Obstetrics & Gynecology
PROC: 0UL70ZZ Occlusion of Bilateral Fallopian Tubes, Open Approach (ICD-10-PCS; 2016-08-17)
PROC: 10D00Z1 Extraction of Products of Conception, Low, Open Approach (ICD-10-PCS; principal; 2016-08-17 17:30)
PROC: 3E00X4Z Introduction of Serum, Toxoid and Vaccine into Skin and Mucous Membranes, External Approach (ICD-10-PCS; 2016-08-20)
DX: O34.211 Maternal care for low transverse scar from previous cesarean delivery (principal); O60.14X0 Preterm labor third trimester with preterm delivery third trimester, not applicable or unspecified; O99.214 Obesity complicating childbirth; Z68.42 Body mass index [BMI] 45.0-49.9, adult; Z3A.36 36 weeks gestation of pregnancy; E66.01 Morbid (severe) obesity due to excess calories; Z23 Encounter for immunization; Z30.2 Encounter for sterilization; Z37.0 Single live birth
CPT/HCPCS: 76818; 85025; 85610; 85730; 86592; 86703; 86850; 86900; 86901; 87340; 88302; 90715; 94760; 99464; G0463; J0690; J0780; J1200; J1885; J2274; J2405; J2590; J2765; J3010; J7120